=== PATIENT | female | born 1980 | race Hispanic/Latino ===

== ENCOUNTER 2017-01-08 13:30 | Emergency (ER) | payer OTHER ==
[~2017-01-08] VITALS: Ht 160 cm; Wt 88.1 kg
[2017-01-08 14:22] LABS: ADD MIUA? YES; BILIRUBIN NEGATIVE; BLOOD NEGATIVE; COLOR YELLOW ((YELLOW)); GLUCOSE (STRIP) NEGATIVE; KETONES 20; LEUKOCYTES NEGATIVE; NITRITE NEGATIVE; PROTEIN (STRIP) 30; SPECIFIC GRAVITY 1.027 (1.000-1.030); UROBILINOGEN 0.2 MG/DL (0.2-1.0)
[2017-01-08 14:24] LABS: BACTERIA NONE SEEN /HPF; EPITHELIAL CELLS RARE /HPF; MUCUS TRACE /LPF; RED BLOOD CELLS 0-5 /HPF (0-5); UCUL ADDED? NO; WHITE BLOOD CELLS 0-5 /HPF (0-5)
[2017-01-08 14:44] LABS: HEMATOCRIT 38.3 % (36.0-46.0); MCH 30.4 PG (29.0-34.0); MCHC 33.2 G/DL (30.0-36.0); MCV 91.6 FL (83-99); MEAN PLAT.VOLUME 10.2 uM^3 (9.5-12.4); PLATELET COUNT 345 K/uL (156-360); RBC DIS.WIDTH-CV 12.6 % (11.8-14.6); RBC DIS.WIDTH-SD 42.2 % (39-53); RED BLOOD COUNT 4.18 M/uL (3.80-5.20)
[2017-01-08 14:52] LABS: CHLORIDE 104 mEq/L (99-109); POTASSIUM 4.1 mEq/L (3.7-5.4); SODIUM 136 mEq/L (136-147)
[2017-01-08 14:55] LABS: GLUCOSE 97 mg/dL (70-99)
[2017-01-08 14:56] LABS: ANION GAP 6 MEQ/L (2-14)
[2017-01-08 14:57] LABS: TOTAL BILIRUBIN 0.3 mg/dL (0.0-1.0)
[2017-01-08 14:58] LABS: ALKALINE PHOSPHATASE 67 IU/L (3-129)
[2017-01-08 14:59] LABS: UREA NITROGEN (BUN) 10 mg/dL (9-23)
[2017-01-08 15:02] LABS: LIPASE 25 U/L (1.0-51.0)
[2017-01-08 15:07] LABS: QUANTITATIVE HCG < 4.0 MIU/ML
[2017-01-08 15:15] LABS: GFR ESTIMATE (CALCULATED) > 59 mL/min/
[2017-01-08 16:28] VITALS: BP 113/73
== END 2017-01-08 16:29 | disposition home or self-care (01) ==
LOC: EME 13:30
DX: R10.32 Left lower quadrant pain (principal); Z87.891 Personal history of nicotine dependence
CPT/HCPCS: 74176; 80053; 81003; 83690; 84702; 85027; 99281; 99284